=== PATIENT | male | born 1960 ===

== ENCOUNTER 2017-11-16 19:26 | Emergency (ER) | payer MEDICAID ==
[2017-11-16 20:20] VITALS: BP 164/89; PULSE 86; RESP 16; TEMP 98.9; O2SAT 96
--- NOTE | 2017-11-16 20:35 | ED PDOC ---
HPI: Back Time Seen by Provider: 11/16/17 20:21 Chief Complaint (Nursing): Back Pain Chief Complaint (Provider): Back Pain History Per: Patient, Family (patient's daughters are at bedside translating for patient in tajik) History/Exam Limitations: no limitations Onset/Duration Of Symptoms: Days (x4) Current Symptoms Are (Timing): Still Present Additional Complaint(s): 57-year-old male presents to the Emergency Department complaining of left side lower back pain since Monday, after lifting a heavy machine at work. Pain is radiating down both legs. Patient has been taking Tylenol without relief, last dose was around 4pm today. He denies any associated fever, chills, numbness, hematuria, dysuria, or incontinence of bowel or bladder. Patient is having increasing pain with ambulation, but is able to move all extremities. PMD: none Past Medical History Reviewed: Historical Data, Nursing Documentation, Vital Signs Vital Signs: Last Vital Signs Temp 98.9 F 11/16/17 20:18 Pulse 86 11/16/17 20:18 Resp 16 11/16/17 20:18 BP 164/89 H 11/16/17 20:18 Pulse Ox 96 11/16/17 20:18 - Medical History PMH: No Chronic Diseases - Surgical History Surgical History: No Surg Hx - Family History Family History: States: No Known Family Hx - Living Arrangements Living Arrangements: With Family - Social History Current smoker - smoking cessation education provided: Yes Alcohol: None Drugs: Denies - Home Medications Home Medications: Ambulatory Orders Medication Instructions Recorded Cyclobenzaprine [Cyclobenzaprine 10 mg PO TID PRN #20 tab 11/16/17 HCl] Naproxen [Naprosyn] 500 mg PO BID #20 tab 11/16/17 traMADol [Ultram] 50 mg PO QID PRN #20 tab 11/16/17 - Allergies Allergies/Adverse Reactions: Allergies Allergy/AdvReac Type Severity Reaction Status Date / Time No Known Allergies Allergy Verified 11/16/17 20:20 Review of Systems ROS Statement: Except As Marked, All Systems Reviewed And Found Negative Constitutional: Negative for: Fever, Chills Genitourinary Male: Negative for: Dysuria, Incontinence, Hematuria Musculoskeletal: Positive for: Back Pain, Leg Pain Neurological: Negative for: Weakness, Numbness Physical Exam - Reviewed Nursing Documentation Reviewed: Yes Vital Signs Reviewed: Yes - Physical Exam Appears: Positive for: Non-toxic, No Acute Distress Head Exam: Positive for: ATRAUMATIC, NORMAL INSPECTION, NORMOCEPHALIC Skin: Positive for: Normal Color. Negative for: Rash Eye Exam: Positive for: Normal appearance Neck: Positive for: Painless ROM. Negative for: Pain On Movement Of Neck Cardiovascular/Chest: Positive for: Regular Rate, Rhythm Respiratory: Positive for: Normal Breath Sounds Gastrointestinal/Abdominal: Positive for: Soft. Negative for: Tenderness, Distended, Guarding Back: Positive for: Other (Left lower lumbar tenderness and palpable muscle spasm, negative bilateral straight leg raise). Negative for: L CVA Tenderness, R CVA Tenderness Extremity: Positive for: Normal ROM. Negative for: Pedal Edema, Calf Tenderness Neurologic/Psych: Positive for: Alert, Oriented - ECG O2 Sat by Pulse Oximetry: 96 (RA) Pulse Ox Interpretation: Normal - Other Rad L/S Spine x-ray X-Ray: Interpreted by Me, Viewed By Me X-Ray Interpretation: no fx, no dis Medical Decision Making Medical Decision Making: Impression: 57 y/o male with back pain Time: 20:32 Plan: Toradol 30 mg IM Tramadol 50 mg PO Flexeril 10 mg PO X-Ray LS spine Patient feels better after meds were given. He is aware of all diagnostic tests results, all questions answered. Prescriptions given for Naprosyn, Flexeril and tramadol. Patient was instructed to follow up with Worker's Compensation physician if symptoms persist. Scribe Attestation: Documented by Linda Fowler, acting as a scribe for Nataliya Spears PA-C Provider Scribe Attestation: All medical record entries made by the Scribe were at my direction and personally dictated by me. I have reviewed the chart and agree that the record accurately reflects my personal performance of the history, physical exam, medical decision making, and the department course for this patient. I have also personally directed, reviewed, and agree with the discharge instructions and disposition. Disposition - Clinical Impression Clinical Impression: Back strain - Patient ED Disposition Is Patient to be Admitted: No Counseled Patient/Family Regarding: Studies Performed, Diagnosis, Need For Followup, Rx Given - Disposition Referrals: Lucian Bain III, MD [Staff Provider] - Disposition: Routine/Home Disposition Time: 21:40 Condition: STABLE Additional Instructions: Take prescription meds as directed. Rest and avoid heavy lifting. 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 Prescriptions: Cyclobenzaprine [Cyclobenzaprine HCl] 10 mg PO TID PRN #20 tab PRN Reason: Muscle Spasm Naproxen [Naprosyn] 500 mg PO BID #20 tab traMADol [Ultram] 50 mg PO QID PRN #20 tab PRN Reason: Pain, Moderate (4-7) Instructions: Low Back Pain (DC), Muscle Strain (DC), Back Exercises Forms: [email or web address] (Bulgarian), [facility] ED School/Work Excuse Print Language: TRISTANIAN
--- NOTE | 2017-11-17 10:11 | RAD ---
PROCEDURE: Radiographs of the Lumbar Spine. HISTORY: trauma COMPARISON: No prior. FINDINGS: BONES: No acute compression fractures no retropulsed fragments. Minor chronic appearing anterior stature of a lumbar and lower thoracic segments. DISC SPACES: Minor multilevel degenerative spondylosis most notably affecting the L5-S1 level. There is mild disc space narrowing with endplate eburnation and small anterolateral osteophyte formation. Facet joints are hypertrophic L5-S1 through the L2-L3 levels in decreasing order of severity. OTHER FINDINGS: None. IMPRESSION: No acute fractures. Mild multilevel degenerative spondylosis most notably affecting the L5-S1 level.
== END 2017-11-16 21:49 | disposition home or self-care (01) ==
LOC: H.ER 19:26
DX: S39.012A Strain of muscle, fascia and tendon of lower back, initial encounter (principal); X50.9XXA Other and unspecified overexertion or strenuous movements or postures, initial encounter; Y99.0 Civilian activity done for income or pay
CPT/HCPCS: 72100; 96372; 99283; J1885